=== PATIENT | female | born 2005 | race Caucasian/White ===

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

== ENCOUNTER 2024-10-10 21:00 | Emergency (ER) | payer OTHER ==
[~2024-10-10] VITALS: Ht 170.2 cm; Wt 49.9 kg
[~2024-10-10 21:00] MED LIST: MULT-90 PO; SERO50TA PO
[2024-10-10 21:04] VITALS: BP 125/85; TEMP 100.6; O2SAT 98
== END 2024-10-11 00:40 | disposition left against medical advice (07) ==
LOC: M ED 21:00
DX: Z53.21 Procedure and treatment not carried out due to patient leaving prior to being seen by health care provider (principal)

== ENCOUNTER 2024-10-24 12:01 | Emergency (ER) | payer OTHER ==
[~2024-10-24] VITALS: Ht 170.2 cm; Wt 49.7 kg
[2024-10-24] MEDS ORDERED: AMOX875T2 PO (12:17)
[2024-10-24] MEDS: KETOROLAC 30 MG/ML 1 ML VIAL IV ONE (12:50)
[2024-10-24] MEDS: NS (Normal Saline) 0.9% 1,000 ML IV ONE (12:50)
[2024-10-24 13:03] LABS: PLATELET COUNT, AUTOMATED 181 10^3/uL (150-450)
[2024-10-24 13:28] LABS: ERYTHROCYTE SEDIMENTATION RATE 22 mm/hr (0-20)
[2024-10-24 13:31] LABS: C REACTIVE PROTEIN QUANTITATIV 2.39 MG/DL (<1.0); CALCIUM LEVEL 8.9 MG/DL (8.5-10.1); CARBON DIOXIDE LEVEL 26 MMOL/L (20-31); CHLORIDE LEVEL 103 MMOL/L (98-107); CREATININE FOR GFR 0.66 MG/DL (0.55-1.30); GLOMERULAR FILTRATION RATE > 90.0 (>60); POTASSIUM SERUM 3.5 MMOL/L (3.5-5.1); SODIUM LEVEL 140 MMOL/L (136-145)
[2024-10-24 13:32] LABS: HCG, SERUM QUALITATIVE NEGATIVE (NEGATIVE)
[2024-10-24] MEDS: dexAMETHasone 4 MG/ML 1 ML VIAL IV ONE (13:37)
[2024-10-24] MEDS ORDERED: ISOVUE-370 76% 100 ML VIAL As Ordered ONE (13:40)
[2024-10-24 13:44] LABS: ATYPICAL LYMPH 5 % (0-5); EOSINOPHILS 1 % (0-3); LYMPHOCYTES 29 % (16-44); MONOCYTES 9 % (0-5); NEUTROPHILS 53 % (28-66)
[2024-10-24 13:47] LABS: MONO SCRN POSITIVE (NEGATIVE); PLATELET ESTIMATE NORMAL (NORMAL)
[2024-10-24 15:15] VITALS: BP 114/59; TEMP 98.6; O2SAT 99
== END 2024-10-24 15:18 | disposition home or self-care (01) ==
LOC: M ED 12:01
DX: J03.80 Acute tonsillitis due to other specified organisms (principal); B27.90 Infectious mononucleosis, unspecified without complication
CPT/HCPCS: 70491; 80048; 83605; 84703; 85025; 85652; 86140; 86308; 87040; 96361; 96374; 96375; 99284; J1100; J1885; Q9967

== ENCOUNTER 2024-11-20 14:13 | Emergency (ER) | payer OTHER, SELFPAY ==
[~2024-11-20] VITALS: Ht 170.2 cm; Wt 51.7 kg
[~2024-11-20 14:13] MED LIST changes: +AMOX875T2 PO
[2024-11-20 14:15] VITALS: BP 129/80; TEMP 97.8; O2SAT 98
[2024-11-20 14:52] LABS: KETONE, URINE AUTO RFX NEGATIVE (NEGATIVE); LEUKOCYTE ESTERASE UR AUTO RFX 2+ (NEGATIVE); MUCUS, URINE RFX SMALL (NEGATIVE); NITRITE, URINE AUTO RFX NEGATIVE (NEGATIVE); RBC, URINE AUTO RFX TNTC /HPF (0-3); SQUAM EPITHELIAL CELL UR AURFX 9 /HPF (0-6); TRANSITIONAL EPITHELIAL AU RFX 1 /HPF; WBC, URINE AUTO RFX TNTC /HPF (0-3)
[2024-11-20 17:08] LABS: Trichomonas vaginalis (AMP) NOT DETECTED (NEGATIVE)
[2024-11-20 17:32] LABS: GC DNA AMPLIFICATION NEGATIVE (NEGATIVE)
[2024-11-20] MEDS ORDERED: CEFD1CAP9 PO (17:51)
[2024-11-20] MEDS ORDERED: PYRI1TAB5 PO (17:51)
[2024-11-20] MEDS: PHENAZOPYRIDINE 100 MG TAB PO ONE (17:56)
[2024-11-20] MEDS: CEFDINIR 300 MG CAP PO ONE (17:57)
== END 2024-11-20 18:02 | disposition home or self-care (01) ==
LOC: M ED 14:13
DX: N30.01 Acute cystitis with hematuria (principal)